=== PATIENT | female | born 1950 | race Caucasian/White ===

== ENCOUNTER → 2019-10-31 14:21 | Outpatient (BNVA) | payer MEDICARE, SELFPAY | PROVIDERS: Visit Provider Specialist | DX: M25.562 Pain in left knee (principal); M25.561 Pain in right knee | CPT/HCPCS: 73560; 73565; 81003; 87641 ==

== ENCOUNTER 2019-11-13 13:25 | Observation (INO) | payer MEDICARE, SELFPAY ==
[2019-11-09 13:41] VITALS: BMI 35.2
--- NOTE | 2019-11-09 13:48 | ECG_ITS ---
Measurements Intervals [place] Rate: 71 P: 78 TX: 192 QRS: -18 QRSD: 97 T: 12 QT: 369 QTc: 404 SINUS RHYTHM VOLTAGE CRITERIA FOR LVH [MEETS CRITERIA IN ONE OF: R(aVL), S(V1), R(V5), R(V5/V6) +S(V1)] No previous ECG available for comparison Electronically Signed On 11-09-2019 15:39:36 GANG WORKER by Reny Barclay M.D. [email or web address]
--- NOTE | 2019-11-09 14:01 | ANES.PREANES ---
Pre-Anesthetic Assessment Pre-Anesthetic Assessment: Height/Weight: Height 1.63 m Weight 92.986 kg Preop Diagnosis: Right degenerative osteoarthritis of the knee Proposed Procedure: Operation Date: 11/13/19 12:45 Proposed Procedures p Total Knee Arthroplasty(Right) - Arlette Cervantes MD Social: Social History: No alcohol and No tobacco Exam: Pre-Anes Outpt Exam: alert, oriented x 3, clear to auscultation bilaterally and regular rate & rhythm Airway: Submandibular: WNL Cervical ROM: WNL MP: 3 Dentition: Other (poor) History/ROS: No significant history except as noted Pulmonary: Pulmonary: None reported CV/HEM: CV/HEM: HTN : : None reported Hepatic: Hepatic: None reported GI: GI: GERD (occ) Metabolic: Metabolic: None reported Musc/skel: Musc/skel: Lower Back Pain and OA/DJD Neuropsych: Neuropsych: None reported Anesthetic Plan: ASA status: II Anesthesia: Anesthesia Evaluation, Eval. for regional block, General and Regional (specify below) (Right Adductor canal) Risk of > 500 ml blood loss (7ml/kg in children): No PFSH Anesthesia PFSH: Medical History (Updated 11/09/19 @ 13:51 by Manisha Low) Accelerated essential hypertension (Acute) Surgical History H/O repair of right rotator cuff (Acute) History of arthroscopy of both knees (Acute) Social History Smoking and tobacco status: never smoked Alcohol intake: former Data Anesthesia Cardiac Studies: No Data to Display
[2019-11-09 14:04] LABS: Basophils % 0.6 %; Eosinophils # 0.2 10^3/uL (0.0-0.8); Eosinophils % 3.1 %; Hematocrit 37.5 % (37.0-47.0); Hemoglobin 12.7 g/dL (11.5-15.3); Lymphocytes # 1.7 10^3/uL (0.8-4.8); Lymphocytes % 34.3 %; Mean Corpuscular HGB Conc 33.9 g/dL (30.0-36.0); Mean Corpuscular Hemoglobin 29.7 pg (28.0-34.0); Mean Corpuscular Volume 87.6 fL (81-99); Mean Platelet Volume 12.1 fL (7.4-10.4); Monocytes # 0.4 10^3/uL (0.2-0.9); Monocytes % 7.9 %; Neutrophils # 2.6 10^3/uL (1.8-7.7); Neutrophils % 53.9 %; Nucleated Red Blood Cells % 0 %; Platelet Count 175 10^3/cmm (130-400); Red Blood Count 4.28 10^6/uL (4.1-5.3); Red Cell Distribution Width 12.5 % (12.1-15.1); White Blood Count 4.8 10^3/uL (4.0-10.0)
[2019-11-09 14:17] LABS: Alanine Aminotransferase 26 U/L (0-33); Albumin Level 4.4 g/dL (3.5-5.2); Alkaline Phosphatase 89 IU/L (35-105); Aspartate Amino Transferase 19 U/L (0-32); Blood Urea Nitrogen 17 mg/dL (8-23); Calcium 9.7 mg/dL (8.5-10.5); Carbon Dioxide 27 mmol/L (22-29); Chloride 104 mmol/L (98-107); Globulin 2.2 g/dL (1.3-4.6); Glomerular Filtration Rate 49.5 mL/min (90-130); Glucose 207 mg/dL (74-106); Sodium 142 mmol/L (136-145); Total Bilirubin 0.2 mg/dL (0.15-1.2); Total Protein 6.6 g/dL (6.6-8.7)
[2019-11-13] VITALS (18 sets, daily range): BP systolic 116–180; BP diastolic 64–98; PULSE 52–87; RESP 14–20; TEMP 36.2–37.1; O2SAT 90–100
--- NOTE | 2019-11-13 07:25 | PM.HPUD ---
H&P update H&P Update: DATE OF SURGERY/PROCEDURE: 11/13/19 DATE H&P PERFORMED: 10/31/19 H&P UPDATE INFORMATION: H&P completed within last 30 days, No changes to prior documentation and H&P is in [facility] E[place] on date indicated PREOP DIAGNOSIS: Severe degenerative osteoarthritis right knee PRIMARY INDICATION FOR PROCEDURE: Pain and limitations in activities of daily living PLANNED PROCEDURE: Operation Date: 11/13/19 12:45 Proposed Procedures Total Knee Arthroplasty(Right) - Arlette Cervantes MD Full H&P Perinent History: Medical/Surgical History: Medical History (Updated 11/01/19 @ 15:13 by Arlette Cervantes MD) Accelerated essential hypertension (Acute) Family History: Family History (Updated 10/31/19 @ 14:27 by Yesenia Orozco LPN) Father Stroke Social History: Social History Smoking and tobacco status: never smoked Alcohol intake: former
[2019-11-13] MEDS: sodium chloride 0.9% 1,000 ML 30 ML IV (09:23)
[2019-11-13] MEDS: scopolamine 1.5 Patch 1 PATCH TRANSDERMA (09:23)
[2019-11-13] MEDS: fentaNYL 50 mcg/mL INJ 2mL IVP (10:08)
[2019-11-13] MEDS: CELEcoxib 200 mg Capsule 400 MG PO (10:09)
[2019-11-13] MEDS: midazolam 1 mg/mL INJ 2 mL 2 MG IVP (10:09)
--- NOTE | 2019-11-13 10:09 | ANES.PROC ---
Anesthesia Procedures Procedure/Date: 11/13/19 Nerve Block ^: Nerve Block 1: Main Anesthesia: general anesthesia Time Out Performed: Yes Consent: requested by attending/covering physician, risks and benefits reviewed and patient agrees to proceed Nerve block location: adductor canal (right) Anesthesia monitors applied: pulse oximetry, EKG, BP cuff and oxygen Nerve block position: supine Anesthetic Used: ropivicaine 0.5% and with decadron (4 mg) Amount of anesthesia used (mL): 30 Ultrasound used to: recognize landmarks Nerve Stimulator Used?: No Interscalene/Femoral BLK: 4 stimuplex 21 g needle used for position and inplane approach, visualize local anesthetic spread and no vascular puncture identified Injection: neg aspiration of heme Patient Tolerated Procedure: well and no complications Complications: none
[2019-11-13] MEDS: ceFAZolin 1,000 mg SDV 1000 MG IRRIGATION ×2 (11:30→11:31)
[2019-11-13] MEDS: vancomycin 1,000 MG SDV 1000 MG XX (11:38)
--- NOTE | 2019-11-13 13:10 | XR_ITS ---
WS: [id number] Right knee, 2 views, 11/13/2019 Clinical Data: Postop Comparison: Bilateral knees, 10/31/2019 Findings: A total right knee arthroplasty has been performed. The arthroplasty components are in good position in the distal femur, proximal tibia and posterior patella. Postoperative air surrounding the knee nicolas nt is seen. There are anterior surgical theodore. XR/XR knee RT 1-2V 53411 Impression: Right knee arthroplasty.
--- NOTE | 2019-11-13 13:10 | SUR.PHASEI ---
1305- RECEIVED PATIENT IN PACU FROM OR VIA [facility]. RESP ARE EVEN AND NONLABORED. SIMPLE MASK APPLIED AT 8LPM, ORAL AIRWAY IN PLACE SAT 97%. SHE IS LETHARGIC. RLE IS WARM TO TOUCH WITH PPP. DRESSING DRY AND INTACT. RASHID CATHETER IS PATENT AND DRAINING CLEAR, YELLOW URINE VIA GRAVITY. NO S/S PAIN OR NAUSEA
--- NOTE | 2019-11-13 13:16 | SUR.PHASEI ---
1315- ORAL AIRWAY OUT, SIMPLE MASK IN PLACE AT 8LPM, SAT 100%
--- NOTE | 2019-11-13 13:21 | PM.OP ---
Operative Report Date of procedure: 11/13/19 Pre-op Diagnosis: Severe degenerative osteoarthritis right knee Post-op diagnosis: same Post-op Findings: Severe degenerative osteoarthritis with instability both medially and laterally Procedure Done: Right total knee arthroplasty utilizing the following components: The Marjan triathlon Tritanium posterior stabilized right femoral component size 5 with a triathlon Tritanium tibial component size 5 and a size 5 x 13 mm posterior stabilized tibial insert. Patella was triathlon Tritanium asymmetric patella size 35 x 10 mm. All were press fitted. Specimens removed/disposition: Bone, disposed of Pathology: none sent Surgeon: Arlette Cervantes Business Sales Consultant: [facility] OR technicians Anesthesia: General (Intubated) and Nerve Block (Adductor canal block in preoperative holding area) Estimated blood loss (mL): 45 Tourniquet time (min): 97 IV fluids (mL): 1,000 Urine output (mL): 100 Complications: None Findings: Severe degenerative osteoarthritis with very minimal flexion contracture but significant instability to varus and valgus stress under anesthesia. Condition: stable Disposition: observation (For postoperative rehab) Brief History: This 69-year-old woman presented with complaints of severe pain in the right knee and difficulties with activities of daily living. After discussion, the patient wished to proceed with operative intervention. Risks and complications were discussed with her. Consents were signed preoperatively. Questions were answered. Procedure: The patient was brought to the operating theater, and after undergoing adequate general intubated anesthesia with supplemental regional block, the right lower extremity was prepped with Dura-Prep and draped in usual fashion following placement of a tourniquet high on the leg. The leg was then draped free. Following prepping and draping, the leg was exsanguinated, and the tourniquet was elevated to 250 mmHg for a total tourniquet time of 97 minutes. Prior to elevation of the tourniquet, but following exposure of the site of surgery, a surgical pause was performed. At the time of the surgical pause, we confirmed the site and side of surgery. Additionally, we confirmed the appropriate and timely administration of preoperative antibiotics, Ancef 2 g and transexemic acid 1 g. The availability of equipment was confirmed, and the patient's identity was verbalized as well. Following the surgical pause, an incision was made centering over the patella continuing proximally and distally as necessary to allow access to the knee joint. Dissection continued through skin and soft tissues using a scalpel. Hemostasis was obtained using electrocautery. The skin incision was followed by a median parapatellar arthrotomy. The leg was extended and the patella was everted. Following this, the leg was returned to flexed position. The distal femur was exposed and a drill hole was made in this for placement of the distal femoral jig. The distal femoral jig was set at 5? of valgus. The distal femoral cutting block was then placed in appropriate position, and an ayden wing was used to confirm an appropriate amount of distal femur would be resected. The distal femoral resection was accomplished with 8 mm of bone being resected distally. After the distal femoral resection had been accomplished, the femur was measured and it measured a size 5. Medial lateral dimension also measured a size 5. A size 5 femoral cutting block was placed in position, and we were then able to accomplish the anterior, posterior and chamfer cuts. This jig was then removed and the notch guide was placed in position. With the notch guide in appropriate position, the notch was excised including resection of the anterior and posterior cruciate ligaments. This notch was to allow for the posterior stabilized femoral component. At this point, the femur was prepared and attention was directed to the proximal tibia. The posterior knee retractor was placed along with medial and lateral retractors. Further resection of the menisci was accomplished as we had better visualization. A complete meniscectomy was performed both medially and laterally with care being taken to protect the popliteus. Retractors were then placed so that the proximal tibia was well visualized. A drill hole was then made in the tibia for placement of the intramedullary guide. This guide was placed so that approximately 2 mm of bone would be resected from the deficient medial tibial plateau. The intramedullary guide was utilized supplemented with an extramedullary guide to assure appropriate alignment for the proximal tibial resection. The proximal tibial jig was then evaluated, pinned in position, and the proximal tibial resection was accomplished without difficulty. The jig was removed and the proximal tibia was measured. It measured a size 5. We then performed a trial reduction with an 11 mm insert into the size 5 tray. The femoral component was placed in position for the trial reduction, and the knee was placed through range of motion. The knee was felt to be slightly loose laterally compared to medially. Therefore, the medial release was accomplished and we were able to increase to an 13 mm insert. There was excellent stability with excellent varus-valgus alignment with appropriate patellar tracking. This was felt to be the appropriate size insert. There was full extension and flexion without lift off and the rotation of the tibia was marked. Alignment was checked from the hip to the ankle, and this was noted to be appropriate as well. Attention was then directed to the patella. The patella was measured with a caliper. We resected sufficient patella to leave approximately 14 mm of patella remaining. Measurements of the patella then indicated that a size asymmetric 35 mm x 10 mm was the appropriate patellar size. We then placed the jig to drill for the 3 pegs of the press-fit patella, and these drill holes were made without incident. A trial patella was then placed and the knee was placed through range of motion. The patella was noted to track nicely without evidence of subluxation. The femur was prepared for a press-fit femur by drilling 2 holes for the femoral pegs. All trial components were subsequently removed. The tibial tray was then pinned into position, and we broached the tibia for the stem of the tibial component. Subsequently, 4 drill holes were made for placement of the press-fit tibia. This was accomplished without difficulty. Care was taken to assure appropriate rotation of the tibia as well as appropriate position on the proximal tibia. The tibial tray was completely seated on the proximal tibia. Following broaching, the tibial guide was removed, and all surfaces were copiously irrigated. The surfaces were then dried and a bone plug was placed into the distal femur. Exparel was also injected at this point. The Tritanium tibia was impacted into position. The beaded femur was then impacted into position in a cementless fashion. The tibial insert was placed. The patella was pressed into position with a patellar clamp. The knee was irrigated with 20 mL of Betadine and 500 mL of normal saline, and this was allowed to remain in the knee for 3-4 minutes. The knee was then copiously irrigated and suctioned dry. Attention was then directed to closure. Closure was accomplished with 0 Vicryl in the fascial tissues, 2-0 Monocryl was used in the subcutaneous tissues, and the skin was closed with skin theodore. A sterile dressing was then placed consisting of Telfa, 4 x 4's, ABDs, sterile soft roll, and an Kaden wrap. The patient was returned the Recovery Room in a satisfactory condition. X-rays were obtained there. The patient will be discharged to the floor for postoperative rehabilitation and pain management. She'll be under observation status with plans to discharge home with home health.
[2019-11-13] MEDS: hydroCHLOROthiazide 25 mg Tablet 12.5 MG PO (17:39)
[2019-11-13] MEDS: lisinopril 20 mg Tablet PO (17:40)
[2019-11-13] MEDS: calcium carbonate 500 mg Chew Tablet 1000 MG PO (17:40)
[2019-11-13] MEDS: chlorhexidine gluconate 0.12% Btl 473 mL 30 ML MUCOUS MEM ×2 (17:40→22:09)
[2019-11-13] MEDS: iron polysaccharide complex 150 mg Capsule PO (17:40)
[2019-11-13] MEDS: sennosides-docusate Tablet 2 TAB PO (17:40)
[2019-11-13] MEDS: oxyCODONE-APAP 5-325 mg Tablet 1 TAB PO (19:56)
[2019-11-13] MEDS: trazodone 50 mg Tablet PO (22:02)
[2019-11-13] MEDS: TRAMadol 50 mg Tablet PO (22:02)
[2019-11-13] MEDS: lactated ringers 1,000 ML 100 ML IV (22:03)
[2019-11-14] MEDS: CELEcoxib 200 mg Capsule PO ×2 (01:58→12:22)
[2019-11-14] MEDS: TRAMadol 50 mg Tablet PO ×2 (02:12→09:41)
[2019-11-14 03:37] VITALS: BP 126/55; PULSE 78; RESP 18; TEMP 36.9; O2SAT 91
[2019-11-14 05:19] LABS: Basophils % 0.1 %; Hematocrit 30.3 % (37.0-47.0); Hemoglobin 10.5 g/dL (11.5-15.3); Lymphocytes # 1.1 10^3/uL (0.8-4.8); Lymphocytes % 10.2 %; Mean Corpuscular HGB Conc 34.7 g/dL (30.0-36.0); Mean Corpuscular Volume 89.4 fL (81-99); Mean Platelet Volume 11.9 fL (7.4-10.4); Monocytes % 9.2 %; Neutrophils # 8.6 10^3/uL (1.8-7.7); Neutrophils % 80.1 %; Nucleated Red Blood Cells % 0 %; Platelet Count 167 10^3/cmm (130-400); Red Blood Count 3.39 10^6/uL (4.1-5.3); Red Cell Distribution Width 12.5 % (12.1-15.1); White Blood Count 10.7 10^3/uL (4.0-10.0)
[2019-11-14 05:50] VITALS: RESP 16
[2019-11-14] MEDS: oxyCODONE-APAP 5-325 mg Tablet 1 TAB PO ×2 (05:50→11:43)
[2019-11-14 07:17] VITALS: BP 121/62; PULSE 67; RESP 20; TEMP 36.6; O2SAT 93
[2019-11-14] MEDS: iron polysaccharide complex 150 mg Capsule PO (09:40)
[2019-11-14] MEDS: hydroCHLOROthiazide 25 mg Tablet 12.5 MG PO (09:40)
[2019-11-14] MEDS: multivitamin therapeutic Tablet 1 TAB PO (09:40)
[2019-11-14] MEDS: lisinopril 20 mg Tablet PO (09:40)
[2019-11-14] MEDS: sennosides-docusate Tablet 2 TAB PO (09:41)
[2019-11-14] MEDS: calcium carbonate 500 mg Chew Tablet 1000 MG PO (09:41)
[2019-11-14] MEDS: cholecalciferol (vitamin D3) 1,000 unit Tablet 1000 UNIT PO (09:41)
[2019-11-14] MEDS: aspirin 325 mg EC Tablet PO (09:41)
[2019-11-14] MEDS: chlorhexidine gluconate 0.12% Btl 473 mL 30 ML MUCOUS MEM ×2 (09:44→12:22)
[2019-11-14] MEDS: lactated ringers 1,000 ML 100 ML IV (09:45)
[2019-11-14 11:22] VITALS: BP 135/64; PULSE 69; RESP 20; TEMP 36.9; O2SAT 92
[2019-11-14 11:43] VITALS: RESP 16
--- NOTE | 2019-11-14 12:33 | PC.CHAP ---
Pastoral Care Encounter/Spiritual Assessment Type of Contact [] Declined director prison visit [] Patient/Family/Request visit [] Outpatient visit [] Follow-up visit [] Physician referral [] Code/Alert [x] Routine visit [] Staff referral [] Actively dying [] Patient sleeping [] Family support [] [] Out of room [] Palliative care [] [] Receiving care in room [] Pre-surgical visit [] Trauma [] Long length of stay [] ICU visit [] Other: Relational/Emotional Strength [] Patient feels connected with others/family/visitors/staff [] Distress [] Loneliness/isolation [] Abandonment Spirituality of Patient [x] Person of Sita [x] Attends Yazdanism of their Sita [x] Believes in Prayer [x] Reads Bible or Presybeterian materials [] There are Spiritual issues to be addressed Lawnmower Mechanic Interventions [x] Prayer [] Active listening [] Non-anxious presence [] Spiritual/emotional support [] Crisis/trauma care [] Spiritual counseling [] Bereavement support [] Provided bereavement packet [] Provided Bible/devotional materials [] Provided toy/stuffed animal, coloring book to patient or family member [x] Completed spiritual assessment [] Provided Communion [] Anointing/Beattie [] Salvation [] Other: Impact on Illness or Injury [] Angry [] Fearful [] Anxious [] Often cries [] Exhaustion [] Unable to work [] Unable to attend sikh [] Unable to walk/stand [] Unable to read [] Unable to drive [] Unable to eat/drink [] Unable to sleep [] Unable to be with family [] Other: Summary Patient happy with surgery, ready to go home. Time spent with patient 10 min
--- NOTE | 2019-11-14 14:23 | P.DS_ITS ---
Discharge Providers Date of Admission: 11/13/19 13:25 Date of Discharge: 11/14/19 Attending Provider at Admission: Arlette Cervantes MD Attending Provider at Discharge: Arlette Cervantes MD Primary Care Provider: Kelvin Dasilva MD Diagnoses at Discharge Discharge Diagnosis (1) History of total right knee replacement (TKR): Status: Acute Problem details: Patient underwent right total knee arthroplasty on the day of admission uneventfully. (2) Primary osteoarthritis of right knee: Status: Inactive Problem details: Resolved with total knee arthroplasty November 13, 2019. Reason for Visit Reason for Visit: Reason For Visit: Bilateral primary osteoarthritis of knee M17.0 Brief History: Patient presented for same day surgery for right total knee arthroplasty to address her primary osteoarthritis of the right knee. Hospital Course Hospital Course: Patient was admitted as an observation patient to the floor following right total knee arthroplasty. Her surgical procedure was uneventful. She had good control of her pain. She tolerated physical therapy and was independent on the first postoperative day. After discussion with the patient, she had help at home, and therefore, she wished to be discharged to home. There were no complications, she was neurologically intact, and she was confident in her ability to be independent. Therefore, patient was discharged to home on the first postoperative day. Physical Exam Narrative: EXAM NARRATIVE: Patient's dressing was removed. Her wound was benign. There was no drainage. There was no swelling. She was neurologically intact. There was no evidence of infection. The calf was soft and nontender with no evidence of DVT. Urinary Catheter Management^: Chawla: Cath Placed During This Visit: no Discharge Data Data Completed and Pending: Completed Studies During Hospitalization Category Date Time Status XR knee RT 1-2V 7 3560 Stat Exams 11/13/19 13:10 Completed Pending at discharge Category Date Time Status Complete Blood Co unt w/Auto Lab 11/15/19 04:00 Uncollected Complete Blood Co unt w/Auto Lab 11/16/19 04:00 Uncollected Labs from last 24 hours 11/14/19 05:06 WBC 10.7 H RBC 3.39 L Hgb 10.5 L Hct 30.3 L MCV 89.4 MCH 31.0 MCHC 34.7 RDW 12.5 Plt Count 167 MPV 11.9 H Neut % (Auto) 80.1 Lymph % (Auto) 10.2 [place] % (Auto) 9.2 Eos % (Auto) 0.0 Baso % (Auto) 0.1 Neut # (Auto) 8.6 H Lymph # (Auto) 1.1 [place] # (Auto) 1.0 H Eos # (Auto) 0.0 Baso # (Auto) 0.0 Nucleated RBC % (a uto) 0 Nucleated RBCs # 0.0 Vitals: Last Vital Signs Temp 98.5 F 11/14/19 11:22 Pulse 69 11/14/19 11:22 Resp 16 11/14/19 11:43 BP 135/64 11/14/19 11:22 Pulse Ox 92 11/14/19 11:22 Discharge Plan Discharge Patient Disposition: Home Health Service Condition: Stable Prescriptions: New celecoxib 200 mg Capsule 200 mg PO Q12H Qty: 60 RF: 0 oxycodone-acetaminophen 5-325 mg Tablet 1 tab PO Q4H PRN (Reason: Severe Pain) Qty: 30 RF: 0 aspirin 325 mg Tablet,Delayed Release (Dr/Ec) 325 mg PO DAILY 30 Days Qty: 30 RF: 0 Continued lisinopril-hydrochlorothiazide 20-12.5 mg tablet 1 tab PO BID RF: 0 trazodone 50 mg tablet 50 mg PO TID RF: 0 Tums 200 mg calcium (500 mg) Tablet,Chewable 200 mg PO BID RF: 0 Discharge Orders: Discharge Order (Routine); Ordered 11/14/19 Ordered By: Arlette Cervantes Referrals: Arlette Cervantes MD [Physician] - 11/26/19 2:15 pm Discharge Diet: Advance as tolerated Discharge Activity: Increase activity as tolerated, Limit activity as instructed and Use walker/crutches as instructed Patient Instructions: Oxycodone/Acetaminophen (By mouth), Aspirin (By mouth), Celecoxib (By mouth), Total Knee Replacement (DC) Activity Restrictions/Additional Instructions: Please work with home health for strengthening, range of motion, and gait training as tolerated. Discharge Date/Time: 11/14/19 14:53 Discharge Attestations Time Spent in Discharge Care*: greater than 30 min Specific Discharge Activities: Specific discharge activities: educating patient, discussing with social work case manager/social workers/dc planners and document ing/other paperwork Status at Discharge: Cognitive status at discharge: cognitively intact , Behavioral status at discharge: cooperative and independent in ADL's , Functional status at discharge: uses cane/walker Overall status at discharge: patient is back to baseline Quality Metrics Clinical Quality Measures During this hospital stay, did patient experience: None Coding Level of Care Code Acute Home Health Administrator for [facility] Diagnoses History of total right knee replacement (TKR) Z96.651 Primary osteoarthritis of right knee M17.11
[2019-11-14 14:28] VITALS: RESP 16
--- NOTE | 2019-11-14 14:48 | ANE.PACU ---
 Inpatient post-anesthesia follow up: Airway intact: Yes Vital signs: Temperature 98.5 F Pulse Rate [Monito r] 63 Pulse Rate 69 Respiratory Rate 16 Blood Pressure [Ri ght Arm] 166/84 Blood Pressure [Le ft Arm] 123/66 Blood Pressure 135/64 Pulse Oximetry 92 Oxygen Delivery Me thod Room Air Oxygen Flow Rate 1 Fraction of Inspir ed Oxygen Hydration adequate: Yes Nausea and vomiting: No Pain level: 4 Mental status: Baseline Additional Comments: Block worked well for patient
== END 2019-11-14 14:53 | disposition home health service (06) ==
LOC: MEDSURG 13:28
PROVIDERS: Admitting Provider Specialist; PCP Family Medicine; Visit Provider Specialist
PROC: (CPT 27447; principal; 2019-11-13 12:45)
DX: M17.11 Unilateral primary osteoarthritis, right knee (principal); Z87.891 Personal history of nicotine dependence; I10 Essential (primary) hypertension; K21.9 Gastro-esophageal reflux disease without esophagitis; M19.90 Unspecified osteoarthritis, unspecified site
CPT/HCPCS: 27447; 12345; 36415; 51702; 73560; 80053; 85025; 93005; 96360; 96361; 96365; 96366; 96374; 96375; 97116; 97161; 97165; 97530; 97535; C1713; C1776; C9290; G0378; J0131; J0690; J1100; J1200; J1885; J2001; J2250; J2405; J2704; J2765; J2795; J3010; J3370; J3490; J7030

== ENCOUNTER → 2019-11-26 13:43 | Outpatient (BNVA) | payer MEDICARE, SELFPAY | PROVIDERS: PCP Family Medicine; Visit Provider Specialist | DX: Z48.89 Encounter for other specified surgical aftercare (principal); Z96.651 Presence of right artificial knee joint | CPT/HCPCS: 73560; 73565 ==

== ENCOUNTER → 2019-12-24 14:10 | Outpatient (BNVA) | payer MEDICARE, SELFPAY | PROVIDERS: PCP Family Medicine; Visit Provider Specialist | DX: Z48.89 Encounter for other specified surgical aftercare (principal); Z96.651 Presence of right artificial knee joint | CPT/HCPCS: 73560; 73565 ==

== ENCOUNTER → 2020-01-21 09:49 | Outpatient (BNVA) | payer MEDICARE, SELFPAY | PROVIDERS: PCP Family Medicine; Visit Provider Specialist | DX: Z48.89 Encounter for other specified surgical aftercare (principal); Z96.651 Presence of right artificial knee joint | CPT/HCPCS: 73560; 73565 ==

== ENCOUNTER 2020-04-28 12:46 | Outpatient (CLI) | payer MEDICARE, SELFPAY ==
--- NOTE | 2020-04-28 12:50 | XR_ITS ---
WS: [id number] Right knee, standing AP views of both knees, lateral and patellar view of the right knee, 04/28/2020 Clinical Data: ptop Comparison: Standing right knee, 01/21/2020. Findings: The right knee arthroplasty is in good position, and the components have not changed. The AP view of the left knee shows medial joint compartment narrowing. XR/XR knee RT 3V* [id number] Impression: 1. Satisfactory right knee arthroplasty. 2. Medial joint compartment narrowing of the left knee.
== END 2020-04-28 12:47 | disposition home or self-care (01) ==
LOC: RAD 12:49
PROVIDERS: PCP Family Medicine; Visit Provider Specialist
DX: Z96.651 Presence of right artificial knee joint (principal)
CPT/HCPCS: 73562

== ENCOUNTER 2020-06-26 15:10 | Outpatient (CLI) | payer MEDICARE, SELFPAY ==
--- NOTE | 2020-06-26 15:16 | MR_ITS ---
WS: [id number] MRI RIGHT SHOULDER NONCONTRAST TECHNIQUE: Sagittal T2, coronal T1, T2 and proton density imaging. Axial gradient PDE imaging. CLINICAL INFORMATION: PAIN IN UNSPECIFIED SHOULDER COMPARISON: None. FINDINGS: Moderate degenerative arthritis at the AC joint with a small amount of subacromial/subdeltoid fluid. Subacromial spurring with narrowing of the subacromial space. Partial intrasubstance and undersurface tear involving the distal supraspinatus at the insertion. No full-thickness tears. No tendon retract ion. Chronic thinning of the supraspinatus distally. Additional intrasubstance and undersurface tears involving the infraspinatus at the insertion. No ten don retraction. Teres minor is normal. Normal subscapularis. Normal biceps tendon in the bicipital gr oove. Degenerative fraying of the glenoid labrum. Degenerative arthritis glenohumeral joint. Small gay bcoracoid effusion. MR/MR shoulder RT wo con* [id number] IMPRESSION: 1. Advanced degenerative arthritis AC joint with mild downsloping of the acrom ion with subacromial spurring. 2. Intrasubstance and undersurface tears involving the distal supraspinatus an d infraspinatus. No tendon retraction. No full-thickness rotator cuff tears. 3. Normal biceps tendon in the bicipital groove. 4. Chronic degenerative fraying of the glenoid labrum.
== END 2020-06-26 15:11 | disposition home or self-care (01) ==
LOC: RADSHAW 15:14
PROVIDERS: PCP Family Medicine; Visit Provider Family Medicine
DX: M19.011 Primary osteoarthritis, right shoulder (principal); M75.101 Unspecified rotator cuff tear or rupture of right shoulder, not specified as traumatic
CPT/HCPCS: 73221

== ENCOUNTER → 2020-06-30 09:29 | Outpatient (BNVA) | payer MEDICARE, SELFPAY | PROVIDERS: PCP Family Medicine; Referring Provider Family Medicine; Visit Provider Specialist | DX: M25.519 Pain in unspecified shoulder (principal) | CPT/HCPCS: 73030 ==

== ENCOUNTER 2020-07-10 11:48 | Outpatient (CLI) | payer MEDICARE, SELFPAY ==
--- NOTE | 2020-07-10 12:30 | MR_ITS ---
WS: [id number] INDICATION: Right shoulder pain. Right humerus pain. TECHNIQUE: MR of the right humerus without and with gadolinium enhancement. Coronal T1 STIR and PD im aging. Sagittal T1 STIR post gadolinium imaging with fat saturation technique. Axial PD and axial T2 imaging. FINDINGS: Correlation with recent shoulder MRI June 26, 2020 Advanced degenerative arthritis AC joint with mild downsloping of the acromion with subacromial spurr ing is unchanged. Previously described intrasubstance and undersurface tears involving the distal sup raspinatus and infraspinatus recently described. Normal bone marrow signal involving the humerus. No abnormal bony gadolinium enhancement. No evidence of acute fracture. No bony lesions. No evidence of bony contusion. Degenerative subchondral cystic c hange at the humeral head. Humeral neck appears normal. Normal soft tissues. Tiny glenohumeral effusion with synovial enhancement postgadolinium imaging. Thi s is likely inflammatory. Recommend correlation for infectious symptoms. No other significant finding s. MR/MR humerus RT wo/w con [id number] IMPRESSION: 1. Normal bone marrow signal in the right humeral head and neck and right snow ral shaft. No evidence of acute fracture or bony contusion. 2. Normal soft tissues. 3. No lesions within the humerus. No abnormal bony enhancement. 4. Tiny right glenohumeral effusion. Synovial enhancement on the post gadolini um imaging likely inflammatory but recommend correlation for infection. 5. Rotator cuff findings as described on recent shoulder MRI.
[2020-07-10 13:09] LABS: Blood Urea Nitrogen 19 mg/dL (8-23); Glomerular Filtration Rate 62.3 mL/min (90-130)
== END 2020-07-10 11:49 | disposition home or self-care (01) ==
PROVIDERS: PCP Family Medicine; Visit Provider Specialist
DX: M19.011 Primary osteoarthritis, right shoulder (principal); M25.421 Effusion, right elbow
CPT/HCPCS: 73220; 82565; 84520; A9579

== ENCOUNTER → 2020-09-01 10:26 | Outpatient (BNVA) | payer MEDICARE, SELFPAY | PROVIDERS: PCP Family Medicine; Referring Provider Specialist; Visit Provider Specialist | DX: M25.511 Pain in right shoulder (principal); R53.1 Weakness | CPT/HCPCS: 95886; 95908 ==

== ENCOUNTER → 2020-10-30 10:32 | Outpatient (BNVA) | payer MEDICARE, SELFPAY | PROVIDERS: PCP Family Medicine; Visit Provider Specialist | DX: Z96.651 Presence of right artificial knee joint (principal) | CPT/HCPCS: 73560; 73565 ==

== ENCOUNTER → 2021-02-05 11:26 | Outpatient (BNVA) | payer MEDICARE, SELFPAY | PROVIDERS: PCP Family Medicine; Visit Provider Specialist | DX: Z96.651 Presence of right artificial knee joint (principal); M25.561 Pain in right knee | CPT/HCPCS: 73560; 73565 ==